=== PATIENT | male | born 1995 | race Hispanic/Latino ===

== ENCOUNTER 2017-02-22 20:52 | Emergency (ER) | payer BC ==
--- NOTE | 2017-02-22 21:55 | ER NURSING DOCUMENTATION ---
Nurse's Notes [facility] Name:Juaquin Hawk Age:21 yrs Sex:Male :1995 Arrival Date:02/22/2017 Time:20:52 Bed2 Private MD: Diagnosis:Head Laceration Presentation: 02/22 20:59 Presenting complaint: Patient states: I stood up into a rock today. Pt denies loc or mk2 neurological problems otherwise. Transition of care: Other hiking. Complicating Factors: There are no complicating factors for this patient. 20:59 Acuity: PEDRO 4 mk2 20:59 Method Of Arrival: Walk In 2 Triage Assessment: 21:01 General: Appears in no apparent distress, Behavior is cooperative, pleasant. Pain: mk2 Denies pain. EENT: No deficits noted. Neuro: No deficits noted. Level of Consciousness is awake, alert, Oriented to person, place, time, event. Injury Description: Laceration sustained to top of head is bleeding a small amount. Historical: - Allergies: No known drug Allergies; - Home Meds: 1. None - PMHx: None; - PSHx: None; - Tetanus: < 10 years. - Ebola Screening: : Patient negative for fever greater than or equal to 101.5 degrees Fahrenheit, and additional compatible Ebola Virus Disease symptoms. Patient denies exposure to infectious person. Patient denies travel to an Ebola-affected area in the 21 days before illness onset. No symptoms or risks identified at this time. . - Immunization history: Flu Vaccine None. - Social history: Smoking status: Patient states was never smoker of tobacco. Patient/guardian denies using alcohol, street drugs. Screenin:03 Infectious Disease Risk None. Abuse screen: Denies threats or abuse. Nutritional mk2 screening: No deficits noted. Assessment: 21:03 See Triage Assessment done by same RN. mk2 21:54 Injury Description: Laceration is 0.5 to 2.5 cm long. mk2 21:54 Musculoskeletal:. mk2 Vital Signs: 21:02 BP 123 / 90; Pulse 74; Resp 13; Temp 98.5; Pulse Ox 95% on R/A; Weight 83.91 kg; Height mk2 5 ft. 10 in. (177.80 cm); Pain 0/10; 21:02 Body Mass Index 26.54 (83.91 kg, 177.80 cm) 2 ED Course: 20:53 Patient arrived in ED. em3 20:54 Brendon Masters MD is Attending Physician. va 20:59 Rabia Carrasco, RN is Primary Nurse. 2 21:01 Triage completed. 2 21:02 Arm band placed on Bed in low position Call Light in Reach Gowned HOB Elevated Side 2 rails up x1. 21:52 Valuables Remains with patient. 2 21:52 wound with NS. 2 21:53 Assist Provider [place]. 2 Administered Medications: No medications were administered Outcome: 21:34 Discharge ordered by . va 21:53 Discharged to home ambulatory. 2 21:53 Condition: improved 21:53 Discharge instructions given to patient, Instructed on discharge instructions, follow up and referral plans. medication usage. 21:54 Patient left the ED. 2 02/23 17:11 Discharge F/U Call: Unable to reach: left voicemail: sj Signatures: Brendon Masters MD MD va Rabia Carrasco, RN RN 2 Enrique Ambriz em3 Julia Brown
--- NOTE | 2017-02-22 21:58 | ER PHYSICIAN DOCUMENTATION ---
Physician Documentation [facility] Name:Juaquin Hawk Age:21 yrs Sex:Male :1995 Arrival Date:02/22/2017 Time:20:52 Bed2 Private MD: Brendon Bailey Disposition: 02/22/17 21:34 Discharged to Home/Self Care. Impression: Head Laceration. - Condition is Good. - Discharge Instructions: LACERATION, Scalp. - Medical Reconciliation form form. - Follow up: Private Physician; When: 1 week; Reason: Staple/Suture removal. - Problem is new. - Symptoms have improved. HPI: 02/22 21:30 This 21 yrs old presents to ER via Walk In with complaints of Laceration To Head. sc 21:30 The patient has a laceration occurred outdoors, The injury was accidental. The sc laceration(s) is(are) located on the top of head. Onset: The symptom(s)/episode began/occurred today. Associated signs and symptoms: The patient has no apparent associated signs or symptoms. Historical: - Allergies: No known drug Allergies; - Home Meds: 1. None - PMHx: None; - PSHx: None; - Tetanus: < 10 years. - Ebola Screening: : Patient negative for fever greater than or equal to 101.5 degrees Fahrenheit, and additional compatible Ebola Virus Disease symptoms. Patient denies exposure to infectious person. Patient denies travel to an Ebola-affected area in the 21 days before illness onset. No symptoms or risks identified at this time. . - Immunization history: Flu Vaccine None. - Social history: Smoking status: Patient states was never smoker of tobacco. Patient/guardian denies using alcohol, street drugs. ROS: 21:31 Constitutional: Negative for fever, chills, and weight loss. sc Eyes: Negative for injury, pain, redness, and discharge. Neck: Negative for injury, pain, and swelling. MS/Extremity: Negative for injury and deformity. 21:31 Neuro: Negative for headache, weakness, numbness, tingling, and seizure. sc 21:31 Skin: Positive for laceration(s). Exam: Constitutional: This is a well developed, well nourished patient who is awake, alert, and in no acute distress. Eyes: Pupils equal round and reactive to light, extra-ocular motions intact. Lids and lashes normal. Conjunctiva and sclera are non-icteric and not injected. Cornea within normal limits. Periorbital areas with no swelling, redness, or edema. ENT: Nares patent. No nasal discharge, no septal abnormalities noted. Tympanic membranes are normal and external auditory canals are clear. Oropharynx with no redness, swelling, or masses, exudates, or evidence of obstruction, uvula midline. Mucous membranes moist. Neck: Trachea midline, no thyromegaly or masses palpated, and no cervical lymphadenopathy. Supple, full range of motion without nuchal rigidity, or vertebral point tenderness. No meningismus. 21:31 Neuro: Awake and alert, GCS 15, oriented to person, place, time, and situation. sc Cranial nerves II-XII grossly intact. Motor strength 5/5 in all extremities. Sensory grossly intact. Cerebellar exam normal. Normal gait. 21:31 Head/face: Noted is a laceration(s), that is superficial, 1.5 cm(s). 21:35 Musculoskeletal/extremity: Extremities: all appear grossly normal, with no appreciated sc pain with palpation. 21:36 Skin: Exam negative for acute changes. sc Vital Signs: 21:02 BP 123 / 90; Pulse 74; Resp 13; Temp 98.5; Pulse Ox 95% on R/A; Weight 83.91 kg; Height mk2 5 ft. 10 in. (177.80 cm); Pain 0/10; 21:02 Body Mass Index 26.54 (83.91 kg, 177.80 cm) mk2 Laceration: 21:31 Wound Repair of 1.5cm ( 0.6in ) subcutaneous laceration to top of head. Linear shaped.. sc Distal neuro/vascular/tendon intact. Anesthesia: Wound infiltrated with 2 mls of 2% lidocaine w/ Epi. Wound prep: Simple cleansing by nurse. Skin closed with 3 1-0 Otto using Staple gun. Dressed with Bacitracin. Patient tolerated well. MDM: 20:54 Patient medically screened. sc 21:32 Differential diagnosis: superficial laceration. Data reviewed: vital signs, nurses sc notes, and as a result, I will discharge patient. Counseling: I had a detailed discussion with the patient and/or guardian regarding: the historical points, exam findings, and any diagnostic results supporting the discharge/admit diagnosis, the need for outpatient follow up, to return to the emergency department if symptoms worsen or persist or if there are any questions or concerns that arise at home. Dispensed Medications: No medications were administered Signatures: Brendon Masters MD MD sc Kruger, Meg, RN RN mk2
== END 2017-02-22 21:54 | disposition home or self-care (01) ==
LOC: ER 20:52
DX: S01.01XA Laceration without foreign body of scalp, initial encounter (principal); W22.8XXA Striking against or struck by other objects, initial encounter; Y92.89 Other specified places as the place of occurrence of the external cause
CPT/HCPCS: 12001; 99283

== ENCOUNTER 2017-03-01 21:58 | Emergency (ER) | payer BC ==
--- NOTE | 2017-03-01 22:09 | ER NURSING DOCUMENTATION ---
Nurse's Notes [facility] Name:Juaquin Hawk Age:21 yrs Sex:Male :1995 Arrival Date:03/01/2017 Time:21:58 Bed1 Private MD: Diagnosis:Staple Removal Presentation: 03/01 22:02 Acuity: PEDRO 5 sc1 Vital Signs: 22:05 Pulse 47; Resp 16; Temp 97.7(O); Pulse Ox 95% ; Pain 0/10; em3 ED Course: 21:59 Patient arrived in ED. ut1 22:02 Nancy Harrell, RN is Primary Nurse. sc1 22:02 Triage completed. sc1 22:06 Valuables Remains with patient. em3 22:06 Removed otto from top of head Otto site is well healed Patient tolerated well. em3 Administered Medications: No medications were administered Outcome: 22:05 No charge visit due to Staple Removal sc1 22:08 Discharge ordered by MD. sc1 22:09 Patient left the ED. ok1 Signatures: Nancy Harrell, SAPNA RN [facility] [place] Enrique Ambriz 3 Ashwini Flanagan [facility]
== END 2017-03-01 22:09 | disposition home or self-care (01) ==
LOC: ER 21:58
DX: Z48.02 Encounter for removal of sutures (principal); S01.01XD Laceration without foreign body of scalp, subsequent encounter